=== PATIENT | female | born 1980 | race Caucasian/White ===

== ENCOUNTER 2017-03-28 16:56 | Emergency (ER) | payer OTHER ==
[~2017-03-28] VITALS: Ht 160 cm; Wt 86.2 kg
[~2017-03-28 16:56] MED LIST: AMOXICILLIN500 M1 PO; HYDROCODON-ACE1 EAC7 PO; IBUPROFEN 400400 M2 PO; PENICILLIN V P500 MG PO; PREDNISONE 20 M20 M1 PO; TORADOL 10 MG T10 MG PO; VENTOLIN HFA 1818 GM INH; ZANAFLEX4 MG PO
[2017-03-28 16:57] VITALS: BP 133/89
[2017-03-28] MEDS ORDERED: NAPROSYN500 MG PO (17:51)
[2017-03-28] MEDS ORDERED: HYDROCODONE-AP1 EAC6 PO (17:51)
[2017-03-28] MEDS ORDERED: LIPITOR10 MG PO (18:07)
[2017-03-28] MEDS ORDERED: LISINOPRIL2.5 MG PO (18:07)
[2017-03-28] MEDS ORDERED: GLUCOPHAGE XR500 MG PO (18:07)
== END 2017-03-28 18:10 | disposition home or self-care (01) ==
LOC: ER 16:56
DX: K02.9 Dental caries, unspecified (principal); M86.9 Osteomyelitis, unspecified; E11.9 Type 2 diabetes mellitus without complications; F17.210 Nicotine dependence, cigarettes, uncomplicated; Z90.710 Acquired absence of both cervix and uterus; Z90.49 Acquired absence of other specified parts of digestive tract